=== PATIENT | male | born 1940 | race Hispanic/Latino ===

== ENCOUNTER → 2018-10-18 | Outpatient (CLI) | payer MEDICARE ==
--- NOTE | 2018-10-18 15:11 | Diagnostic Imaging Report ---
PROCEDURE:X-RAY LEFT KNEE, THREE OR MORE VIEWS COMPARISON:None. INDICATIONS:LEFT KNEE PAIN FINDINGS: No acute, displaced fracture or dislocation. Mild tricompartmental joint space narrowing, marginal osteophytosis, and subchondral sclerosis. No significant joint effusion. Quadriceps tendon enthesopathy. Soft tissues otherwise unremarkable. CONCLUSION: No acute osseous abnormality. Mild tricompartmental degenerative arthrosis. Dictated by: Winston Andrea M.D. on 10/18/2018 at 15:15 Electronically approved by: Winston Andrea M.D. on 10/18/2018 at 15:15
== END ==
LOC: RAD 14:26
PROVIDERS: ATTEND Family Medicine
DX: M25.562 Pain in left knee (principal)